=== PATIENT | female | born 1970 | race Caucasian/White ===

== ENCOUNTER 2018-10-19 06:43 | Inpatient (IN) ==
[~2018-10-19 06:43] MED LIST: ANCEF 1 GRAM IV PREMIX* 1 G/50 ML BAG IV ONE; D5 1/2 NS 1000 ML 1,000 ML IV ONE
[2018-10-19] MEDS: D5 1/2 NS 1000 ML 1,000 ML IV SCH ×3 (07:01→15:32)
[2018-10-19] MEDS ORDERED: ANCEF VIAL 1 GRAM IVP ONE (07:01)
[2018-10-19] MEDS ORDERED: FENTANYL INJ 250 mcg ONE (07:11)
[2018-10-19] MEDS ORDERED: DILAUDID INJ ONE ×5 (07:12→10:29)
[2018-10-19 07:22] VITALS: BMI 22.6
[2018-10-19] MEDS ORDERED: ZOFRAN INJ 4 MG VIAL IVP PRN ×2 (07:47→10:46)
[2018-10-19] MEDS ORDERED: PHENERGAN INJ 25 MG IVP PRN (07:47)
[2018-10-19] MEDS ORDERED: REGLAN INJ 10 MG VIAL IVP PRN (07:47)
[2018-10-19] MEDS ORDERED: BENADRYL INJ 50 MG VIAL IVP PRN ×2 (07:47→10:46)
[2018-10-19] MEDS ORDERED: LR 1000 ML IV 1,000 ML IV ONE (08:35)
[2018-10-19] MEDS ORDERED: METHYLENE BLUE 1% INJ ONE (08:42)
[2018-10-19] MEDS: DILAUDID INJ IVP PRN ×7 (09:55→10:25)
[2018-10-19] MEDS ORDERED: PHENERGAN INJ 25 MG ONE (10:04)
[2018-10-19] MEDS ORDERED: TORADOL 30 MG VIAL IVP PRN (10:46)
[2018-10-19] MEDS ORDERED: D5 1/2 NS 1000 ML 1,000 ML IV SCH (10:46)
[2018-10-19] MEDS: MORPHINE SULFATE PCA 30 MG IVP PRN ×2 (12:06→19:14)
[2018-10-19] MEDS: NORMODYNE INJ 20 MG VIAL IVP PRN ×5 (12:37→14:34)
[2018-10-19 15:14] LABS: HEMATOCRIT 26.7 % (36.0-47.0); HEMOGLOBIN 8.5 g/dL (12.0-16.0)
[2018-10-19] MEDS: NORMODYNE TAB 100 MG PO SCH ×2 (15:26→22:36)
[2018-10-19] MEDS ORDERED: VERSED ONE (15:36)
[2018-10-19] MEDS ORDERED: SUPRANE IN ONE (15:36)
[2018-10-19] MEDS ORDERED: DIPRIVAN VIAL ONE (15:36)
[2018-10-19] MEDS ORDERED: NORCURON INJ 10 MG VIAL ONE (15:36)
[2018-10-19] MEDS ORDERED: ROBINUL ONE (15:36)
[2018-10-19] MEDS ORDERED: ZOFRAN INJ 4 MG VIAL ONE (15:36)
[2018-10-19] MEDS ORDERED: NEOSTIGMINE INJ ONE (15:36)
[2018-10-19] MEDS ORDERED: QUELICIN (OR ANECTINE) ONE (15:36)
[2018-10-19] MEDS: VALIUM PO SCH ×2 (19:13→20:20)
[2018-10-20] MEDS: D5 1/2 NS 1000 ML 1,000 ML IV SCH ×5 (00:20→23:17)
[2018-10-20] MEDS: MORPHINE SULFATE PCA 30 MG IVP PRN (04:19)
[2018-10-20 04:25] LABS: BASOPHILS % (AUTO) 0.3 % (0.2-1.0); EOSINOPHILS % (AUTO) 0.1 % (0.9-2.9); HEMOGLOBIN 9.3 g/dL (12.0-16.0); LYMPHOCYTES # (AUTO) 0.9 X10^3/uL (1.3-2.9); LYMPHOCYTES % (AUTO) 12.7 % (21.0-51.0); MEAN CORPUSCULAR HEMOGLOBIN 22.7 pg (27.0-34.0); MEAN CORPUSCULAR HGB CONC 31.1 g/dL (33.0-35.0); MEAN CORPUSCULAR VOLUME 72.9 fL (80.0-100.0); MEAN PLATELET VOLUME 8.1 fL (7.4-11.0); MONOCYTES # (AUTO) 0.5 x10^3/uL (0.3-0.8); MONOCYTES % (AUTO) 7.2 % (0.0-13.0); NEUTROPHILS # (AUTO) 5.5 x10^3/uL (2.2-4.8); NEUTROPHILS % (AUTO) 79.7 % (42.0-75.0); PLATELET COUNT 133 X10^3/uL (150.0-450.0); RED BLOOD COUNT 4.11 X10^6/uL (3.5-5.4); RED CELL DISTRIBUTION WIDTH 15.9 % (11.6-16.5); WHITE BLOOD COUNT 6.9 X10^3/uL (3.6-10.0)
[2018-10-20 04:28] LABS: BLOOD UREA NITROGEN 5 mg/dL (7-18); CALCIUM 8.2 mg/dL (8.5-10.1); CHLORIDE 103 mmol/L (98-107); CREATININE 0.72 mg/dL (0.55-1.02); SODIUM 138 mmol/L (136-145); eGFR NON BLACK RACES > 60 (>60)
[2018-10-20 04:45] LABS: HYPOCHROMASIA 1+; MICROCYTOSIS SLIGHT
[2018-10-20 04:46] LABS: PLATELET MORPHOLOGY COMMENT NORMAL (NORMAL)
[2018-10-20] MEDS ORDERED: MOTRIN TAB 800 MG PO PRN (07:38)
[2018-10-20] MEDS: VALIUM PO SCH ×2 (08:42→20:47)
[2018-10-20] MEDS: NORCO 10/325 TAB PO PRN ×2 (10:10→17:12)
[2018-10-20] MEDS: PLAQUENIL PO SCH (10:10)
[2018-10-20] MEDS: COLACE CAP 100 MG PO SCH ×2 (10:11→20:47)
[2018-10-20] MEDS: K-DUR TAB 20 MEQ PO SCH (10:11)
[2018-10-20] MEDS: PREDNISONE TAB 5 MG PO SCH (10:11)
[2018-10-20] MEDS: BACTROBAN TOPICAL OINT TOP SCH ×2 (13:20→22:16)
[2018-10-21] MEDS: BACTROBAN TOPICAL OINT TOP SCH (05:17)
[2018-10-21] MEDS: NORCO 10/325 TAB PO PRN (07:22)
[2018-10-21 08:14] VITALS: BP 152/83
[2018-10-21] MEDS: K-DUR TAB 20 MEQ PO SCH (08:38)
[2018-10-21] MEDS: COLACE CAP 100 MG PO SCH (08:39)
[2018-10-21] MEDS: PLAQUENIL PO SCH (08:39)
[2018-10-21] MEDS: PREDNISONE TAB 5 MG PO SCH (08:39)
[2018-10-21] MEDS: VALIUM PO SCH (08:39)
[2018-10-21] MEDS: D5 1/2 NS 1000 ML 1,000 ML IV SCH (08:43)
== END 2018-10-21 11:55 | disposition home or self-care (01) | DRG 742 ==
LOC: MED/SURG 06:43
PROVIDERS: ADMIT Specialist; ATTEND Specialist
DX: K91.72 Accidental puncture and laceration of a digestive system organ or structure during other procedure; D25.2 Subserosal leiomyoma of uterus; Y65.8 Other specified misadventures during surgical and medical care; Z01.810 Encounter for preprocedural cardiovascular examination; D50.8 Other iron deficiency anemias; Z01.818 Encounter for other preprocedural examination; Y92.234 Operating room of hospital as the place of occurrence of the external cause; N92.0 Excessive and frequent menstruation with regular cycle; Z01.811 Encounter for preprocedural respiratory examination
CPT/HCPCS: 36415; 71020; 71046; 80048; 81003; 84703; 85014; 85018; 85025; 85610; 85730; 86850; 86900; 86901; 87086; 93005; 94760; A4216; A4222; J0330; J0690; J1170; J1885; J2250; J2271; J2405; J2550; J2704; J2710; J3010; J3490; J7120; J7512; Q9968; S5010